=== PATIENT | female | born 1950 | race Caucasian/White ===

== ENCOUNTER 2019-06-11 17:39 | Inpatient (IN) | payer MEDICARE, OTHER ==
[~2019-06-11] VITALS: Ht 160 cm; Wt 87.4 kg
[2019-06-11 18:45] VITALS: BP 107/64
--- NOTE | 2019-06-11 19:13 | NUR ---
PT ARRIVED ON REHAB UNIT AT 1840 VIA WHEELCHAIR. PT TRANSFERRED TO A RECLINER WITH GAIT BELT, WALKER AND MIN ASSIST, LEFT FOOT DRAGS AND LEFT HAND AND ARM HAVE RESIDUAL WEAKNESS AND TINGLING. PT INSTRUCTED ON USE OF CALL LIGHT, BED CONTROLS AND FALL PRECAUTIONS. PT HAS A CHAIR ALARM IN PLACE AND WAS ABLE TO DEMONSTRATE USE OF CALL LIGHT. PT DENIES NEEDS AT THIS TIME.
--- NOTE | 2019-06-12 01:38 | NUR ---
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
[2019-06-12 04:06] LABS: HEMATOCRIT 41.7 % (37.0-47.0); HEMOGLOBIN 14.1 gm/dL (12.0-15.0); MCH 28.5 pg (26.0-34.0); MCHC 33.8 g/dL (28.0-37.0); MCV 84.4 fL (80.0-100.0); MPV 6.8 fl. (7.2-11.1); RBC 4.94 mil/uL (4.20-5.00); RDW-CV 13.8 % (10.5-14.5); WBC 8.5 thou/uL (4.0-11.0)
[2019-06-12 04:22] LABS: CALCIUM 9.2 mg/dL (8.5-10.1); CREATININE 0.9 mg/dL (0.6-1.3); POTASSIUM 3.7 mmol/L (3.5-5.1)
[2019-06-12 04:30] LABS: URINE BILIRUBIN NEGATIVE (Negative); URINE BLOOD NEGATIVE (Negative); URINE CLARITY CLEAR; URINE COLOR YELLOW; URINE GLUCOSE-RANDOM NEGATIVE (Negative); URINE KETONES NEGATIVE (Negative); URINE LEUKOCYTES-REFLEX NEGATIVE (Negative); URINE NITRITE-REFLEX NEGATIVE (Negative); URINE PROTEIN NEGATIVE (Negative); URINE UROBILINOGEN 0.2 E.U./dl (0.2-1.0)
--- NOTE | 2019-06-12 05:06 | NUR ---
SLEEPING SINCE 2199 & SLEPT GOOD.USED URINAL X2 W/ ASSIST.INC URINE X1.INC. BM X1.BRP X1 FOR BM.PEG DRSG CHANGED @ 0300.RESIDUAL X2-0 @ 1999 & 0000-06/12- .H20 FLUSHES GIVEN 100 ML W/ MEDS.
--- NOTE | 2019-06-12 05:24 | NUR ---
SLEPT LATE @ 2215 & SLEEPING GOOD ALL NIGHT.AWAKENED BY LAB FOR BLOOD DRAW @ 0330.VOIDED ONLY 50 ML @ 0330 & SENT TO LAB FOR UA/CS.PICTURE TAKEN @ 033 -LEFT ELBOW.DRSG CHANGED LEFT ELBOW W/ MEPILEX @ 034.BRP X2.DRAGS LEFT FOOT WHEN AMBULATING.NEEDS VERBAL CUES TO LIFT LEFT FOOT HIGHER WHEN WALKING. REFUSED HS SNACK.
--- NOTE | 2019-06-12 06:53 | NUR ---
VOIDED 3RD TIME @ 0540-500 ML.BLADDER SCAN-760.SUGGESTED TO VOID AGAIN 4TH TIME PER BSC-100 ML ONLY.BLADDER SCAN-[address] ALFONSO INFORMED OF SCAN RESULT.ORDER GIVEN.STRAIGHT CATH @ 0630 & OBTAINED 525 ML URINE.KESHIA CARE DONE @ 0640.
[2019-06-12 07:55] VITALS: BP 120/74
[2019-06-12 08:30] VITALS: BP 120/74
--- NOTE | 2019-06-12 11:12 | NUR ---
Nutrition: 2gm Na and low fat diet ordered - RD will simplify diet order to Heart Healthy. RX: MVI, statin, B12. No albumin recorded. Wt: 194#. Admitted to rehab with Rt CVA. Eating well. No nutrition concerns. Low risk.
--- NOTE | 2019-06-12 11:52 | NUR ---
Pt with ST. Pt admitted to inpt rehab unit from [facility]. Pt lives in mobile home with her . Pt has supportive children. SW to meet with pt and follow up with family as needed. SW to continue to follow to assist with safe dc planning.
--- NOTE | 2019-06-12 16:11 | NUR ---
UP WITH 1 ASSIST, GAIT BELT AND WALKER. ALERT AND ORIENTED X4 WITH PERIODS OF CONFUSION AND FORGETFULNESS. DENIES NEED FOR PAIN MEDICATION WHEN OFFERED. HEALING RIGHT BUTTOCK WOUND OPEN TO AIR. LEFT BUTTOCK DRESSING DRY AND INTACT. REMAINS ON 02 AT 3L/NC TO O2 SATS IN 90'S. USES BIPAP AT NIGHT. FINE CRACKLES NOTED IN LOWER LUNGS. CALL LIGHT WITHIN REACH. USING BED ALARM AND CHAIR ALARM. PROGRESSING TOWARD DISCHARGE GOAL.
--- NOTE | 2019-06-12 20:02 | NUR ---
UP WITH 1 ASSIST GAIT BELT AND WALKER. CONTINUES TO HAVE WEAKNESS TO LEFT ARM AND LEG. ALERT AND ORIENTED X4. NO C/O PAIN. BLADDER SCANNED THIS EVENING AFTER VOIDING AND HAD 459ML STILL IN BLADDER. STRAIGHT CATH WITHOUT DIFFICULTY WITH CLEAR YELLOW URINE RETURN. CALL LIGHT WITHOUT REACH. BED AND CHAIR ALARM USED.
[2019-06-12 20:09] VITALS: BP 112/83
--- NOTE | 2019-06-13 05:51 | NUR ---
PT UP WITH ASSIST X ONE DURING SHIFT. PT ABLE TO AMBULATE TO BATHROOM WITH USE OF WALKER. AT 0200 PT VOIDED 50 ML OF URINE. BLADDDER SCAN DONE AND PT STRAIGHT CATHED. RECIEVED 500 ML URINE AT THAT TIME. CALL LIGHT IN REACH, PT USING APPROPRIATELY. NO ACUTE CHANGES DURING SHIFT.
[2019-06-13 08:23] VITALS: BP 96/64
--- NOTE | 2019-06-13 14:49 | NUR ---
ASSESSMENT COMPLETE. PT ALERT AND ORIENTED X4. PT UP IN CHAIR MOST OF THE DAY. TOLERATING MEALS. PRN TYLENOL GIVEN THIS AFTERNOON FOR LEFT HAND PAIN. DR MAURICIO PHONED PATIENTS NEUROLOGIST DR HYLTON AND THEY ARE CHANGING MEDICATIONS FROM ASA TO PLAVIX AND DC LOVENOX. PT ABLE TO URINATE DURING THE DAY. PT IS UP ONE ASISST WITH WALKER AND GAIT BELT. SEE ASSESSMENT AND DOCUMENTATION FOR OTHER DETAILS. CALL LIGHT WITHIN REACH, CHAIR/BED ALARM IN PLACE. WILL CONTINUE PLAN OF CARE
[2019-06-13 20:09] VITALS: BP 136/77
--- NOTE | 2019-06-14 01:39 | NUR ---
ASSUMED CARE @ 1939-06/13-SUNDAY.SITS IN RECLINER W/ LE'S UP.CHAIR ALARM PUT ON @ 1939,WATCHING TV.STILL W/ LEFT HEMIPARESIS.VOIDED PER BRP-300 ML @ 2124. 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
--- NOTE | 2019-06-14 05:15 | NUR ---
SLEPT LATE @ 2229 & SLEPT GOOD ALL NIGHT.TOOK 50% DIET DR HANSON HS SNACK. BRP X1 W/ SBA BEFORE HS @ 2124.WILL BLADDER SCAN WHEN VOIDS NEXT.
--- NOTE | 2019-06-14 06:45 | NUR ---
AWAKENED @ 0545 TO ASK IF NEEDED TO VOID.LAST VOIDED -@ 2125-8 HOURS AGO & 20 MINUTES.VOIDED ONLY 150.PVR-422 ML.PATIENT REFUSED TO HAVE STRAIGHT CATH. WILL NOTIFY DR ALFONSO IF CAN INCREASE LIMIT OF PVR TO DO ST.CATH.
[2019-06-14 08:05] VITALS: BP 121/75
--- NOTE | 2019-06-14 16:22 | NUR ---
ASSUMMED CARE OF PT AT 0730, PT ALERT AND ORIENTED, PT HAS LEFT SIDE WEAKNESS, TRANSFERS WITH SBA, GB WALKER, CUEING, PT TAKING FOOD AND FLUIDS WELL, PT VOIDED 500CC THIS AM AND SCANNED FOR 88CC, VOIDED 400 CC AT 1230 AND SCANNED FOR 27 CC, PT STATES SHE FEELS SHE IS EMPTYING WITH HER VOIDING, PT COMPLAINED OF GENERALIZED PAIN THIS AM, MEDICATED X 1 FOR PAIN WITH GOOD RELIEF, HAD LUNCH IN DININGROOM, PARTCIPATED IN ALL THERAPIES, HOURLY ROUNDING COMPLETED, ASSESSMENT COMPLETE, WILL CONTINUE TO MONITOR.
[2019-06-14 19:55] VITALS: BP 114/82
--- NOTE | 2019-06-15 05:52 | NUR ---
ASSUMED CARES AT 1920. ALERT AND ORIENTED. PLEASANT. TYLENOL GIVEN FOR LEFT HAND PAIN. MIN ASSIST WITH GAIT BELT AND WALKER. UP TO BATHROOM. PT REFUSED LOVENOX DESPITE EDUCATION. SLEPT WELL. CALL LIGHT IN REACH AND BED ALARM ON.
[2019-06-15 08:27] VITALS: BP 127/87
--- NOTE | 2019-06-15 16:44 | NUR ---
ASSUMMED CARE OF PT AT 0730, PT ALERT AND ORIENTED, TRANSFERS WITH ASSIST OF 1, GB WALKER, DENIES PAIN, TAKING FOOD AND FLUIDS WELL, AMBULATES TO BATHROOM, VOIDS 300-500 CC AMOUNTS, OPEN AREA ON LEFT ELBOW IMPROVING, CLEANSED AND MEPILEX REAPPLIED, PARTICIPATED IN ALL THERAPIES, HOURLY ROUNDING COMPLETED, ASSESSMENT COMPLETE, WILL CONTINUE TO MONITOR.
[2019-06-15 19:45] VITALS: BP 97/73
--- NOTE | 2019-06-16 06:04 | NUR ---
ASSUMED CARES AT 1920. ALERT AND ORIENTED. PLEASANT. CVA WITH LEFT SIDE WEAKNESS. TYLENOL GIVEN FOR LEFT HAND PAIN. MIN ASSIST WITH GAIT BELT AND WALKER. UP TO BATHROOM. POST VOID BLADDER SCAN X 1 SHOWED 63 CC. SLEPT WELL. CALL LIGHT IN REACH AND BED ALARM ON.
[2019-06-16 08:22] VITALS: BP 105/60
[2019-06-16 20:00] VITALS: BP 123/73
--- NOTE | 2019-06-16 20:01 | NUR ---
I ASSUMED CARE OF THE PATIENT AT 0700. SHE IS ALERT AND ORIENTED X4 AND IS PLEASANT. BED IS IN THE LOW LOCKED POSITION AND CALL LIGHT IS IN REACH. HOURLY ROUNDING WAS COMPLETED AND PATIENT NEEDS WERE MET. PAIN IS MANAGED WITH PRN MEDS. SHE HAD VISITORS DURING THE DAY AND DID WELL WITH THERAPY. SHE IS HOPEFUL OF GETTING BETTER SOON AND GOING HOME. WILL CONTINUE TO MONITOR.
--- NOTE | 2019-06-17 05:35 | NUR ---
ASSUMED CARES AT 1920. ALERT AND ORIENTED. PLEASANT. LEFT SIDE WEAKNESS. TYLENOL GIVEN FOR LEFT HAND PAIN. MIN ASSIST WITH GAIT BELT AND WALKER. UP TO BATHROOM. DOES OWN CARES. SLEPT WELL. CALL LIGHT IN REACH AND BED ALARM ON.
[2019-06-17 08:00] VITALS: BP 142/74
--- NOTE | 2019-06-17 11:31 | NUR ---
SW called and spoke with pt in preparation for team conference tomorrow. Pt did not have any concerns or questions at this time; pt shared that he thinks pt is doing well in therapies and moving towards goals. SW to continue to follow to assist with safe dc planning.
--- NOTE | 2019-06-17 15:30 | NUR ---
ASSUMMED CARE OF PT AT 0730, PT ALERT AND ORIENTED, TRANSFERS WITH SBA, GB WALKER, LEFT SIDE WEAKER, AIRVEYOR OPERATOR CALLED FOR AFO FITTING, ORDER FAXED, PT AMBULATES TO BATHROOM TO VOID,VOIDS IN 300-500 CC AMOUNTS, HAD LUNCH IN DININGROOM, LEFT LEG SLIGHTLY SWOLLEN, US COMPLETED, LEG ELEVATED, PT COMPLAINS OF HAND/ARM PAIN, MEDICATED PER ORDER WITH GOOD RELIEF, PARTICIPATED IN ALL THERAPIES, HOURLY ROUNDING COMPLETED, ASSESSMENT COMPLETE, WILL COTNINUE TO MONITOR.
[2019-06-17 20:09] VITALS: BP 92/71
[2019-06-18 08:34] VITALS: BP 113/71
--- NOTE | 2019-06-18 16:19 | NUR ---
ISABELLE and Dr Sheikh met with pt to review team conference summary and plan for pt to remain on rehab unit and team to reassess pt length of stay during team conference next Sunday. Pt in agreement with plan. SW to continue to follow to assist with safe dc planning.
--- NOTE | 2019-06-18 18:03 | NUR ---
PATIENT STILL CONCERNED WITH NERVE PAIN. REQUIRED TYLENOL TIMES 2. OTHERWISE TOLERATED WELL.
[2019-06-18 19:30] VITALS: BP 132/68
--- NOTE | 2019-06-19 01:55 | NUR ---
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
--- NOTE | 2019-06-19 05:09 | NUR ---
SLEEPING SINCE 2200 & SLEPT GOOD ALL NIGHT.BRP W/ SBA X2 DURING NIGHT.CHANGED KESHIA PAD @ 0500.STILL DRAGS LEFT FOOT WHEN AMBULATING TO & FROM BATHROOM.TOOK ALL ANANTH.ICE CREAM & KALIE CRACKERS HS SNACKS.
[2019-06-19 07:57] VITALS: BP 110/74
--- NOTE | 2019-06-19 18:32 | NUR ---
PATIENT RESTING UP IN CHAIR. PATIEN TIS UP WITH MINIMAL ASSIST WITH WALKER AND GAIT BELT. PATIENT HAS COMPLAINTS OF LEFT ARM PAIN, LIDODERM PATCH APPLIED AND PATIENT STARTED ON GABAPENTIN. PATIENT HAS GOOD APPETITE. PATIENT DENIES ANY NEEDS AT THIS TIME. CALL LIGHT WITHIN REACH.
[2019-06-19 19:41] VITALS: BP 124/71
--- NOTE | 2019-06-19 20:00 | NUR ---
SITTING UP IN RECLINER WATCHING TV. DENIES DISCOMFORT. CALL LIGHT WITHIN REACH. SNACK PROVIDED.
--- NOTE | 2019-06-20 05:36 | NUR ---
UP X ONE DURING THE NIGHT TO THE BATHROOM TO VOID. HOURLY ROUNDING IN PROGRESS.
[2019-06-20 08:26] VITALS: BP 104/65
[2019-06-20 20:09] VITALS: BP 136/70
--- NOTE | 2019-06-21 06:41 | NUR ---
ASSUMED PATIENT CARE AT 1900. PATIENT ALERT AND ORIENTED TIMES FOUR. MINOR COMPLAINT OF PAIN IN LEFT SHOULDER. LIDOCAINE PATCH APPLIED. FALL RISK PRECAUTIONS IN PLACE. ALERT AND ORIENTED TIMES FOUR. RN ASSESSMNET AND HOURLY ROUNDING COMPLETED CHARTED
[2019-06-21 07:45] VITALS: BP 116/68
--- NOTE | 2019-06-21 18:14 | NUR ---
AM ASSESSMENT AND VITAL SIGNS COMPLETED DOCUMENTED. PT WORKS WITH ALL THERAPIES AND IS VERY MOTIVATED TO MEET HER DISCHARGE GOALS. PT IS AMBULATORY TO AND FROM THE BATHROOM WITH A FFW. LIDOCAINE PATCH AND TYLENOL GIVEN FOR C/O LEFT ARM AND HAND PAIN SECONDARY TO NEUROPATHY. FALL PRECAUTIONS AND HOURLY ROUNDING CONTINUE.
[2019-06-21 20:13] VITALS: BP 105/69
--- NOTE | 2019-06-22 01:33 | NUR ---
ASSUMED CARE @ 1934-06/21-SAT.SITS IN RECLINER WATCHING TV.CHAIR ALARM ON ALREADY @ 1934.LEFT ELBOW-JOVITA.WEARS KESHIA PADS.LEFT LE WEAKER THAN LUE. 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
--- NOTE | 2019-06-22 05:23 | NUR ---
SLEPT LATE @ 2300 & SLEPT GOOD ALL NIGHT.BRP W/ SBA X1.TOOK ALL ANANTH.ICE CREAM & ONE PACKAGE KALIE CRACKERS HS SNACKS.
[2019-06-22 07:46] VITALS: BP 104/47
[2019-06-22 19:30] VITALS: BP 126/75
--- NOTE | 2019-06-23 00:57 | NUR ---
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
[2019-06-23 04:03] LABS: HEMATOCRIT 42.5 % (37.0-47.0); HEMOGLOBIN 14.1 gm/dL (12.0-15.0); MCH 28.2 pg (26.0-34.0); MCHC 33.1 g/dL (28.0-37.0); MCV 85.1 fL (80.0-100.0); MPV 6.9 fl. (7.2-11.1); RBC 4.99 mil/uL (4.20-5.00); RDW-CV 13.8 % (10.5-14.5); WBC 7.3 thou/uL (4.0-11.0)
[2019-06-23 04:33] LABS: CALCIUM 8.7 mg/dL (8.5-10.1); CREATININE 0.9 mg/dL (0.6-1.3)
--- NOTE | 2019-06-23 05:16 | NUR ---
SLEEPING SINCE 2200 & SLEPT GOOD ALL NIGHT.BRP W/ SBA X2 DURING NIGHT.STILL DRAGS LEFT FOOT WHILE AMBULATING.TOOK ALL KALIE RACKERS-ONE PACKAGE W/ANANTH. ICE CREAM HS SNACKS.
[2019-06-23 07:49] VITALS: BP 136/67
--- NOTE | 2019-06-23 16:49 | NUR ---
ASSUMMED CARE OF PT AT 0730, PT ALERT AND ORIENTED, PT TRANSFERS WITH MIN ASSIST GB WALKER, PT C/O GENERALIZED PAIN, MEDICATED X 1 WITH GD RELIEF, DENIED NEED FOR LIDODERN PATCH, PT TAKING FOOD AND FLUIDS WELL, BM X 1 THIS SHIFT, WEARS AFO BRACE TO LEFT LEG, PARTICIPATED IN ALL THERAPIES, HOURLY ROUNDING COMPLETED, ASSESSMENT COMPLETE, WILL CONTINUE TO MONITOR.
[2019-06-23 19:30] VITALS: BP 138/70
--- NOTE | 2019-06-24 05:30 | NUR ---
ASSUMED CARES AT 1920. ALERT AND ORIENTED. PLEASANT. TYLENOL GIVEN FOR LEFT HAND PAIN. MIN ASSIST WITH GAIT BELT AND WALKER. UP TO BATHROOM. DOES OWN CARES. SLEPT MOST OF THE NIGHT. CALL LIGHT IN REACH AND BED ALARM ON.
[2019-06-24 08:00] VITALS: BP 74/44
[2019-06-24 09:41] VITALS: BP 110/64
[2019-06-24 10:43] LABS: HEMATOCRIT 46.5 % (37.0-47.0); HEMOGLOBIN 15.9 gm/dL (12.0-15.0); MCH 28.8 pg (26.0-34.0); MCHC 34.2 g/dL (28.0-37.0); MCV 84.2 fL (80.0-100.0); MPV 6.8 fl. (7.2-11.1); RBC 5.52 mil/uL (4.20-5.00); RDW-CV 13.8 % (10.5-14.5)
[2019-06-24 11:00] LABS: ALBUMIN 3.6 g/dL (3.4-5.0); CALCIUM 9.7 mg/dL (8.5-10.1); CREATININE 1.1 mg/dL (0.6-1.3); POTASSIUM 4.1 mmol/L (3.5-5.1); TOTAL BILIRUBIN 0.5 mg/dL (<0.1-1.0); TOTAL PROTEIN 7.9 g/dL (6.4-8.2)
--- NOTE | 2019-06-24 15:41 | EKG ---
[place] [address] ELECTROCARDIOGRAM REPORT Name: JEANNETTE MARIEE Room: [address] IN [facility]#: [id number] Admission: 06/11/19 Attend Phys: Ambrose Sheikh MD Discharge: Date of : 54 Report #: [id number] THIS REPORT FOR: //name// [facility] Test Date: 2019-06-24 Test Time: 08:46:52 Pat Name: JEANNETTE MARIEE Department: y Room: Gender: Quartz Miner: : 1950 Requested By: Order Number: [id number] Reading MD: Kavin Sarmiento Measurements Intervals [place] Rate: 99 P: 61 IN: 139 QRS: -45 QRSD: 95 T: 51 QT: 354 QTc: 455 Interpretive Statements Sinus rhythm Probable left atrial enlargement Inferior infarct, old Consider anterior infarct No previous ECG available for comparison Electronically Signed On 06-24-2019 15:41:28 COMPLIANCE REVIEW SPECIALIST by Kavin Sarmiento [email or web address] <ELECTRONICALLY SIGNED> By: Kavin Sarmiento MD, [facility] 06/24/19 1541 [id number] Kavin Sarmiento MD, FACC /EPI
--- NOTE | 2019-06-24 15:43 | EKG ---
[place] [address] ELECTROCARDIOGRAM REPORT Name: JEANNETTE MARIEE Room: [address] ADM IN M.R.#: [id number] Admission: 06/11/19 Attend Phys: Ambrose Sheikh MD Discharge: Date of : 54 Report #: [id number] THIS REPORT FOR: //name// [facility] Test Date: 2019-06-24 Test Time: 13:30:32 Pat Name: JEANNETTE MARIEE Department: Room: [address] Gender: F Insurance Account Assistant: RT : 1950 Requested By: Ambrose Sheikh Order Number: [id number] Reading MD: Kavin Sarmiento Measurements Intervals [place] Rate: 106 P: 54 [place]: 140 QRS: -64 QRSD: 92 T: 45 QT: 350 QTc: 465 Interpretive Statements Sinus tachycardia Left anterior fascicular block Consider inferior infarct No previous ECG available for comparison Electronically Signed On 06-24-2019 15:43:19 FILM RENTAL CLERK by Kavin Sarmiento [email or web address] <ELECTRONICALLY SIGNED> By: Kavin Sarmiento MD, [facility] 06/24/19 1543 1330 1330 Kavin Sarmiento MD, FACC /EPI
--- NOTE | 2019-06-24 15:54 | NUR ---
ASSUMMED CARE OF PT AT 0730, PT ALERT AND ORIENTED, STATES SHE DOES NOT FEEL WELL TOADY, C/O SLIGHT NAUSEA, BP 74/44, C/O DIZZINESS, DR ALFONSO AWARE, EKG DONE, HOSPITALIST INFORMED, BP RECHECKED AND IMPROVED TO 110/64, TACHYCARDIC, IV STARTED IN LEFT AC, FLUIDS STARTED, LABS DRAWN, PT STATES IS FEELING BETTER IN LATE MORNING, PT UP IN CHAIR, PARTICIPATED WITH THERAPIES,THERAPIST DID CHECK ORTHOSTATIC BP AND STATED THERE WAS A DROP FROM SITING TO STANDING, ATE SMALL AMOUNT FOR LUNCH, AMBULATED TO BATHROOM TO VOID, PT ENCOURAGED TO DRINK FLUIDS, ASSESSMENT COMPLETED, HOURLY ROUNDING COMPLETED, WILL CONTINUE TO MONITOR.
[2019-06-24 20:00] VITALS: BP 104/56
--- NOTE | 2019-06-25 05:21 | NUR ---
ASSUMED CARES AT 1920. ALERT AND ORIENTED. PLEASANT. PT STATES THAT WAS FEELING BETTER THAN EARLIER TODAY. SBA WITH GAIT BELT AND WALKER. UP TO BATHROOM. DOES OWN CARES. PERIPAD. SLEPT WELL. CALL LIGHT IN REACH.
[2019-06-25 08:00] VITALS: BP 99/62
--- NOTE | 2019-06-25 10:55 | NUR ---
AM ASSESSMENT AND VITAL SIGNS COMPLETED DOCUMENTED. PT STATES SHE FEELS A LOT BETTER TODAY AND SHE HAS BEEN ABLE TO PARTICIPATE IN THERAPY THIS MORNING. SALINE LOCK DC'D PER PT REQUEST. PT IS INDEPENDENT WITH EATING, SUPERVISION WITH TALKING AND AMBULATING. FALL PRECAUTIONS AND HOURLY ROUNDING CONTINUE.
--- NOTE | 2019-06-25 17:17 | NUR ---
ISABELLE and Dr Sheikh met with pt to review team conference summary and plan for team to reteam with dc next Monday 07/02. Pt in agreement with plan. SW to discuss with pt and team recommending family training prior to dc. Also services to follow at dc.
[2019-06-25 19:45] VITALS: BP 106/64
--- NOTE | 2019-06-26 01:33 | NUR ---
ASSUMED CARE @ 1929-06/25-SUN.SITS IN RECLINER DOING CROSSWORD PUZZLES ON HER SMART PHONER.CHAIR ALARM ON ALREADY @ 1929.WEARS KESHIA PAD.SBA FOR ALL TRANSFERS & TOILETING.BED ALARM PUT ON @ 2119.TURNS SELF @ NIGHT.WANTS ALL LIGHTS OFF,DOOR CLOSED & SIDERAILS X2 UP @ NIGHT.ON HOURLY ROUNDS.LUE & LEFT LE GETTING STRONGER.
[2019-06-26 04:14] LABS: HEMATOCRIT 39.4 % (37.0-47.0); MCH 28.3 pg (26.0-34.0); MCHC 33.5 g/dL (28.0-37.0); MCV 84.6 fL (80.0-100.0); MPV 6.8 fl. (7.2-11.1); RBC 4.66 mil/uL (4.20-5.00); RDW-CV 14.1 % (10.5-14.5); WBC 6.2 thou/uL (4.0-11.0)
[2019-06-26 04:24] LABS: HEMOGLOBIN 13.2 gm/dL (12.0-15.0)
[2019-06-26 04:49] LABS: CALCIUM 8.9 mg/dL (8.5-10.1); CREATININE 0.9 mg/dL (0.6-1.3); MAGNESIUM 1.9 mg/dL (1.8-2.4); POTASSIUM 3.6 mmol/L (3.5-5.1); TOTAL BILIRUBIN 0.4 mg/dL (<0.1-1.0); TOTAL PROTEIN 6.7 g/dL (6.4-8.2)
--- NOTE | 2019-06-26 05:39 | NUR ---
SLEEPING SINCE 2200 & SLEPT GOOD ALL NIGHT.STILL DRAGS LEFT FOOT WHEN AMBULATING TO/FROM BATHROOM.VERBAL CUES GIVEN TO LIFT LEFT FOOT HIGHER WHILE WALKING.AWAKENED BY LAB @ 0300 FOR BLOOD DRAW.BRP W/ SBA X2.TOOK ALL ANANTH.ICE CREAM & ONE PACKAGE KALIE CRACKERS HS SNACKS.
[2019-06-26 08:05] VITALS: BP 112/66
--- NOTE | 2019-06-26 14:09 | NUR ---
ISABELLE called pt this morning and reviewed team conference summary and plan for dc Monday 07/02. ISABELLE discussed and scheduled family training for Sunday at 1:00 pm. SW to continue to follow to assist with safe dc planning.
--- NOTE | 2019-06-26 15:26 | NUR ---
ASSUMMED CARE OF PT AT 0730, PT ALERT AND ORIENTED, TRANSFERS WITH SBA, GB WALKER, C/O PAIN IN LEFT ARM, MEDICATED X 2 FOR PAIN, AMBULATES TO BATHROOM TO VOID, AMBULATED TO DININGROOM FOR LUNCH, PARTICIPATED IN ALL THERAPIES, HOURLY ROUNDING COMPLETED, ASSESSMENT COMPLETE, WILL CONTINUE TO MONITOR.
[2019-06-26 19:35] VITALS: BP 123/67
--- NOTE | 2019-06-27 01:36 | NUR ---
ASSUMED CARE @ 1929-06/26-.SITS IN RECLINER ON HER SMART PHONE.WEARS KESHIA-PAD.BED ALARM PUT ON @ 2109.LUE & LEFT LE W/ INCREASED STRENGTH.DRAGS LEFT FOOT WHILE AMBULATING.GIVEN VERBAL CUES TO LIFT LEFT FOOT WHILE WALKING. TURNS SELF @ NIGHT.ON HOURLY ROUNDS.
--- NOTE | 2019-06-27 05:10 | NUR ---
SLEEPING SINCE 2199 & SLEPT GOOD ALL NIGHT.BRP W/ SBA X2.CHANGED KESHIA PAD @ 2109.TOOK ALL DIET ANANTH JUAREZ.ICE CREAM & ONE PACKAGE KALIE CRACKERS HS SNACKS.
[2019-06-27 08:10] VITALS: BP 120/65
--- NOTE | 2019-06-27 17:51 | NUR ---
AM ASSESSMENT AND VITAL SIGNS COMPLETED DOCUMENTED. PT CONTINUES TO WORK WITH ALL THERAPIES AND IS PROGRESSING TOWARD DISCHARGE GOALS. PT CALLS FOR ASSISTANCE BEFORE GETTING UP AND IS AMBULATORY WITH A WALKER, NO CUES OR CONTACT NEEDED. PT DOES HER OWN KESHIA CARE AND CLOTHING MANAGEMENT WHEN TOILETING. FALL PRECAUTIONS AND HOURLY ROUNDING CONTINUE PER PROTOCOL.
[2019-06-27 20:00] VITALS: BP 118/56
--- NOTE | 2019-06-28 05:28 | NUR ---
ASSUMED CARES AT 1920. ALERT AND ORIENTED. PLEASANT. DENIED ANY NEED FOR PAIN MEDS. SBA WITH GAIT BELT AND WALKER. UP TO BATHROOM. PERIPAD. DOES OWN CARES. SLEPT WELL. CALL LIGHT IN REACH. BED ALARM ON.
[2019-06-28 08:00] VITALS: BP 104/65
--- NOTE | 2019-06-28 18:43 | NUR ---
ASSUMED CARE AT 0730. ALERT ORIENTED PLEASANT COOPERATIVE. HX OF CVA . USES CALL LIGHT APPROPRIATELY FOR ASSIST. TRANSFERS WITH SBA G BELT WALKER WEARS AFO IN HER SHOE FOR WEAKNESS. PARTICIPATING IN THERAPIES. HAD C/O L HAND PAIN TYLENOL 2 TABS PO GIVEN X 2 WITH SOME RELIEF STATED. VOIDS BR ABLE TO DO HYGEINE AND CLOTHING ADJUSTMENTS. TO FOR LUNCH MEAL HERE VISITING THIS AFTERNOON. APPETITE GOOD FEEDS SELF. TAKES MEDS WITHOUT DIFFICULTY WITH WATER.
[2019-06-28 20:00] VITALS: BP 121/78
--- NOTE | 2019-06-29 05:30 | NUR ---
ASSUMED CARES AT 1920. ALERT AND ORIENTED. PLEASANT. SBA WITH GAIT BELT AND WALKER. UP TO BATHROOM. NO ISSUES OVERNIGHT. CALL LIGHT IN REACH. BED ALARM ON.
[2019-06-29 07:41] VITALS: BP 107/65
--- NOTE | 2019-06-29 17:12 | NUR ---
ALERT AND ORIENTED X4. UP WITH 1 ASSIST, GAIT BELT AND WALKER. DENIED NEED FOR PAIN MEDICATION. CONTINENT OF BOWEL AND BLADDER. CALL LIGHT WITHIN REACH. BED ALARM AND CHAIR ALARM USED.
[2019-06-29 19:30] VITALS: BP 117/52
--- NOTE | 2019-06-30 05:34 | NUR ---
ASSUMED CARES AT 1920. ALERT AND ORIENTED. PLEASANT. DENIED ANY NEED FOR FURTHER PAIN MEDS. SBA WITH GAIT BELT AND WALKER. UP TO BATHROOM. NO ISSUES OVERNIGHT. CALL LIGHT IN REACH AND BED ALARM ON.
[2019-06-30 07:45] VITALS: BP 113/64
[2019-06-30 07:53] VITALS: BP 136/109
[2019-06-30 08:45] VITALS: BP 113/64
--- NOTE | 2019-06-30 16:17 | NUR ---
PATIENT WORKED WITH THERAPYS TODAY. PATIENT UP WITH SBA, WALKER AND GAIT BELT. C/O LEFT HAND PAIN, PRN TYLENOL GIVEN X 1 WITH GOOD RELIEF NOTED. PATIENT UP TO BATHROOM WITH ASSISTANCE, BM NOTED THIS SHIFT.
[2019-06-30 20:30] VITALS: BP 119/69
--- NOTE | 2019-07-01 05:13 | NUR ---
ASSUMED CARES AT 1920. ALERT AND ORIENTED. PLEASANT. TYLENOL GIVEN FOR LEFT HAND PAIN. SBA WITH GAIT BELT AND WALKER. UP TO BATHROOM. PERIPAD FOR STRESS INCONTINENCE. SLEPT WELL. CALL LIGHT IN REACH.
[2019-07-01 07:15] VITALS: BP 110/70
[2019-07-01] MEDS ORDERED: VITAMIN B-12500 MCG PO (10:32)
[2019-07-01] MEDS ORDERED: ATORVASTATIN CA20 MG PO (10:32)
[2019-07-01] MEDS ORDERED: NEURONTIN 300M300 M2 PO (10:32)
[2019-07-01] MEDS ORDERED: PLAVIX 75 MG TA75 M1 PO (10:32)
[2019-07-01] MEDS ORDERED: FENOFIBRATE160 MG PO (10:32)
[2019-07-01] MEDS ORDERED: AMITRIPTYLINE H25 M2 PO (10:32)
--- NOTE | 2019-07-01 16:25 | NUR ---
ASSUMMED CARE OF PT AT 0730, PT ALERT AND ORIENTED, PT TRANSFERS WITH SBA, GB WALKER, AMBULATES TO TOILET TO VOID, UP IN CHAIR ALL SHIFT, PT C/O PAIN IN LEFT HAND, MEDICATED PER ORDER, TAKING FOOD AND FLUIDS WELL, PARTICIPATED IN ALL THERAPIES, HOURLY ROUNDNING COMPLETED, ASSESSMENT COMPLETE, WILL CONTINUE TO MONITOR.
[2019-07-01 19:35] VITALS: BP 118/72
--- NOTE | 2019-07-01 19:35 | NUR ---
SITTING UP IN RECLINER WATCHING TV. DENIES DISCOMFORT. CALL LIGHT WITHIN REACH.
--- NOTE | 2019-07-02 04:50 | NUR ---
RESTED QUIETLY SINCE ABOUT 2200. GIVEN TYLENOL PER REQUEST AT BEGINNING OF SHIFT FOR COMPLAINT OF LEFT ARM AND LEFT HAND PAIN. NO FURTHER COMPLAINT OF PAIN. PATIENT TO BE DISCHARGED TO HOME TODAY. HOURLY ROUNDING IN PROGRESS.
[2019-07-02 08:11] VITALS: BP 125/61
[2019-07-02 11:02] VITALS: BP 125/61
[2019-07-02 13:39] VITALS: BP 125/61
--- NOTE | 2019-07-02 14:30 | NUR ---
Pt to dc home with today. Team conference held today; ISABELLE and Dr Sheikh met with pt to review team conference summary and plan for dc home with HH services to follow. Pt preference for [facility]; ISABELLE faxed referral and orders/med list to [facility]. Pt to provide pt ride home.
--- NOTE | 2019-07-02 15:06 | NUR ---
ASSUMMED CARE OF PT AT 0730, PT ALERT AND ORIENTED, TRANSFERS WITH SBA, GB WALKER, AMBULATES TO BATHROOM TO VOID, PT COMPLAINS OF LEFT ARM PAIN AFTER THERAPY, MEDICATED PER ORDER WITH GD RELIEF, PT PARTICPATED IN ALL THERAPIES, HAD LUNCH IN DININGROOM,HOURLY ROUNDING COMPLETED, ASSESSMENT COMPLETE, ORDERS RECIEVED FOR DISCHARGE, PT INSTRUCTED ON FOLLOW UP VISITS WITH NEUROLOGIST AND PCP, MEDICATIONS INCLUDING OINTMENTS FOR PSORIASIS AND NASAL SPRAY, WELL NEW MEDICATIONS AND OVER THE COUNTER MEDS, FALL PRECAUTIONS, HOME HEALTH , SCRIPTS GIVEN TO PT,PT VOICES UNDERSTANDING OF INSTRUCTIONS. PT DISCHARGED TO MAIN ENTRANCE WITH BELONGINGS PER W/C.
== END 2019-07-02 14:30 | disposition home health service (06) | DRG 56 ==
LOC: M.REH 17:39
PROVIDERS: Internal Medicine; ADMIT Physical Medicine & Rehabilitation
DX: I69.354 Hemiplegia and hemiparesis following cerebral infarction affecting left non-dominant side (principal); I63.9 Cerebral infarction, unspecified; D68.51 Activated protein C resistance; D68.9 Coagulation defect, unspecified; E44.1 Mild protein-calorie malnutrition; I67.850 Cerebral autosomal dominant arteriopathy with subcortical infarcts and leukoencephalopathy; I25.10 Atherosclerotic heart disease of native coronary artery without angina pectoris; E78.5 Hyperlipidemia, unspecified; G62.9 Polyneuropathy, unspecified; I95.9 Hypotension, unspecified; Z88.1 Allergy status to other antibiotic agents; Z91.02 Food additives allergy status; Z91.013 Allergy to seafood; Z68.34 Body mass index [BMI] 34.0-34.9, adult